=== PATIENT | male | born 2000 | race Caucasian/White ===

== ENCOUNTER 2019-06-14 18:50 | Emergency (ER) | payer BC ==
[2019-06-14] MEDS ORDERED: Cephalexin 500 MG Cap PO ONE (18:51)
[2019-06-14] MEDS ORDERED: Diphtheria,Pertussis(Acell),Tetanus Vaccine 0.5 ML Syringe IM ONE (19:22)
[2019-06-14] MEDS ORDERED: Lidocaine 1% 30 ML SDV INJECT ONE (19:30)
[2019-06-14] MEDS: Lidocaine 1% 20 ML MDV ONE ×2 (19:31→19:34)
[2019-06-14] MEDS ORDERED: Lidocaine 1% 20 ML MDV INJECT ONE (19:35)
--- NOTE | 2019-06-14 19:57 | EDM.PDOC ---
ED HPI GENERAL MEDICAL PROBLEM - General Chief Complaint: General Stated Complaint: INFECTION Time Seen by Provider: 06/14/19 19:10 Source of Information: Reports: Patient History Limitations: Reports: No Limitations - History of Present Illness INITIAL COMMENTS - FREE TEXT/NARRATIVE: Dale is a 18 yo male who presents to the ED with concerns of an infected cut. States he was working yesterday and didn't realize he had cut his thumb. States yesterday evening it started to bother him. Admits today any time he put his glove on it would aggravate it. Denies any bleeding when it happened. Tonight it started to hurt more and felt like infection in it. States it got red around it. No warmth to touch. Right Finger-Thumb Pain Score (Numeric/FACES): 3 - Related Data Allergies Allergy/AdvReac Type Severity Reaction Status Date / Time Penicillins Allergy Cannot Verified 06/14/19 18:54 Remember Home Meds: Home Meds . [No Known Home Meds] 06/14/19 [History] Past Medical History - Past Surgical History HEENT Surgical History: Reports: Oral Surgery, Tonsillectomy Social & Family History - Tobacco Use Smoking Status *Q: Never Smoker Second Hand Smoke Exposure: No - Caffeine Use Caffeine Use: Reports: None - Recreational Drug Use Recreational Drug Use: No ED ROS GENERAL - Review of Systems Review Of Systems: Comprehensive ROS is negative, except as noted in HPI. ED EXAM, GENERAL - Physical Exam Exam: See Below Exam Limited By: No Limitations General Appearance: Alert, No Apparent Distress Extremities: Normal Range of Motion, Normal Capillary Refill Neurological: No Motor/Sensory Deficits Skin Exam: Warm, Dry, Wound/Incision (3mm closed laceration to base/palm of right thumb. Surrounding erythema and swelling noted roughly 1cm in diameter. No increased warmth. Concerning for foreign body. ) Course - Vital Signs Last Recorded V/S: Last Vital Signs Temp 98.7 F 06/14/19 18:51 Pulse 68 06/14/19 18:51 Resp 16 06/14/19 18:51 BP 130/68 06/14/19 18:51 Pulse Ox 100 06/14/19 18:51 - Orders/Labs/Meds Orders: Active Orders 24 hr Category Date Time Status Vaccines to be Administered [RC] PER UNIT ROUTINE Care 06/14/19 19:22 Active Hand 2V Rt [CR] Stat Exams 06/14/19 19:47 Ordered Meds: Medications Discontinued Medications Generic Name Dose Route Start Last Admin Trade Name Jesus PRN Reason Stop Dose Admin Diphtheria/Tetanus/Acell Pertussis 0.5 ml 06/14/19 19:22 06/14/19 19:33 Adacel IM 06/14/19 19:23 0.5 ml .ONCE ONE Administration Lidocaine HCl Confirm 06/14/19 19:11 06/14/19 19:34 Xylocaine 1% Administered 06/14/19 19:12 Not Given Dose 20 ml .ROUTE .STK-MED ONE Lidocaine HCl 5 ml 06/14/19 19:30 06/14/19 19:36 Xylocaine-Mpf 1% INJECT 06/14/19 19:31 Not Given ONETIME ONE Lidocaine HCl 20 ml 06/14/19 19:35 06/14/19 19:36 Xylocaine 1% INJECT 06/14/19 19:36 20 ml ONETIME ONE Administration Departure - Departure Time of Disposition: 20:08 Disposition: Home, Self-Care 01 Clinical Impression: Puncture wound of hand, right Qualifiers: Encounter type: initial encounter Foreign body presence: unspecified Qualified Code(s): S61.431A - Puncture wound without foreign body of right hand, initial encounter - Discharge Information Instructions: Puncture Wound, [id number], Hand or Foot Foreign Body, Adult Referrals: PCP,None [Primary Care Provider] - Forms: ED Department Discharge Additional Instructions: 1) Keflex (cephalexin) 500mg twice a day for 7 days 2) Tylenol (acetaminophen) 650mg of 1000mg with ibuprofen 400mg every 6 hours as needed for pain 3) Watch for signs of infection as discussed 4) If symptoms worsen, advise returning for reevaluation. Sepsis Event Note - Evaluation Sepsis Screening Result: No Definite Risk - Focused Exam Vital Signs: Vital Signs Temp Pulse Resp BP Pulse Ox 06/14/19 18:51 98.7 F 68 16 130/68 100 Date Exam was Performed: 06/14/19 Time Exam was Performed: 20:06 - Problem List & Annotations (1) Puncture wound of hand, right SNOMED Code(s): 94001907260508589 Code(s): S61.431A - PUNCTURE WOUND W/O FOREIGN BODY OF RIGHT HAND, INIT ENCNTR Status: Acute Current Visit: Yes Qualifiers: Encounter type: initial encounter Foreign body presence: unspecified Qualified Code(s): S61.431A - Puncture wound without foreign body of right hand , initial encounter - My Orders Last 24 Hours: My Active Orders 06/14/19 19:22 Vaccines to be Administered [RC] PER UNIT ROUTINE 06/14/19 19:47 Hand 2V Rt [CR] Stat - Assessment/Plan Last 24 Hours: My Active Orders 06/14/19 19:22 Vaccines to be Administered [RC] PER UNIT ROUTINE 06/14/19 19:47 Hand 2V Rt [CR] Stat Plan: Initially, we did try and carrie a 3mm incision after appropriate scrub and sterile technique with 11 blade. No purulent drainage was noted. No foreign body found either. X-ray then completed to look for foreign body which was negative. Triple antibiotic ointment applied and will start prophylaxis antibiotics. See additional instructions.
[2019-06-14] MEDS ORDERED: Bacitracin/Neomycin/Polymyxin B Oint 0.9 GM U/D Packet TOP ONE (20:06)
[2019-06-14] MEDS ORDERED: Take Home: Cephalexin 500 MG Cap, 4 Cap Pack PO ONE (20:09)
== END 2019-06-14 20:20 | disposition home or self-care (01) ==
LOC: CC.ED 18:50
DX: S61.011A Laceration without foreign body of right thumb without damage to nail, initial encounter (principal); Z88.0 Allergy status to penicillin; Z23 Encounter for immunization; W26.8XXA Contact with other sharp object(s), not elsewhere classified, initial encounter
CPT/HCPCS: 73120; 90471; 90715; 99283; A9270; J2001